=== PATIENT | male | born 1990 | race Two or more races ===

== ENCOUNTER 2020-07-07 00:59 | Emergency (ER) | payer MEDICAID, OTHER ==
[~2020-07-07] VITALS: Ht 175.3 cm; Wt 72.6 kg
--- NOTE | 2020-07-07 01:09 | NUR ---
BIBEMS C/O ALTERED, FOUND PT WITH METH PIPE NEXT TO HIM PER EMS REPORT. PT WAS TRANSFERRED TO BED 13 AND WAS PLACED ON A MONITOR, VSS. PT IS REFUSING TO TALK AND GIVING ANY MEANINGFUL INFORMATION. NO S/S OR C.O PAIN OR DISCOMFORT NOTED . WILL CONT TO MONITOR,
[2020-07-07] MEDS ORDERED: OLANZAPINE 10 MG VIAL IM ONE ×5 (02:51→15:30)
--- NOTE | 2020-07-07 03:24 | NUR ---
Tiarra buchanan in [facility] - 07/07/20 at 0632 by MAXI PT STATED" I DON'T WANNA BE HERE AND I WANNA LEAVE" DENIED ANY PAIN OR DISCOMFORT, DENIED SI OR HI.
--- NOTE | 2020-07-07 06:30 | NUR ---
PT REMAINED IN BED , DOSING INTERMITTENTLY, BREATHING EVENLY. NO SOB. NO S./S OF PAIN OR DISCOMFORT NOTED. VSS. REFUSED TO TALK OR TO GIVE ANY INFORMATION INCLUDING HIS NAME. WILL CONT TO MONITOR ,
--- NOTE | 2020-07-07 07:41 | NUR ---
patient in bed awake, hooked to monitor, VSS. will continue to monitor accordingly. sitter at bedside for safety
--- NOTE | 2020-07-07 08:35 | NUR ---
PT ASLEEP, EASILY AWAKEN BY VERBAL STIMULI & WILL GO BACK TO SLEEP. RR EVEN & UNLABORED. NAD NOTED AT THIS TIME. WILL CONT TO MONITOR.
--- NOTE | 2020-07-07 09:52 | NUR ---
patient not able to provide urine sample at this time
--- NOTE | 2020-07-07 10:30 | NUR ---
SS Note: SW met with pt. at bedside.The pt. is a 30 year old Black male in ED for altered mental status. The pt. was medicated with Zyprexa. The pt. appears unkempt and makes piercing eye contact. The pt. is not cooperative with the interview. TALI informed pt. SW to assist pt. with safe discharge plan. TALI w asked for pt.'s name. Patient mumbling, "I gave it to the nurses". However, he has not. Patient stated " I need to brush my teeth". TALI notified nurse. TALI will follow up at a later time if needed.
[2020-07-07 10:43] LABS: BASOPHILS % (AUTO) 0.7 % (0.0-2.0); EOSINOPHILS % (AUTO) 2.2 % (0.0-6.0); HEMATOCRIT 43 % (39-51); LYMPHOCYTES # (AUTO) 0.7 /CMM (0.8-4.8); LYMPHOCYTES % (AUTO) 13.2 % (20.0-44.0); MEAN CORPUSCULAR HGB CONC 33 g/dl (31.0-36.0); MEAN CORPUSCULAR VOLUME 81 fL (80-96); MONOCYTES # (AUTO) 0.8 /CMM (0.1-1.30); MONOCYTES % (AUTO) 15.2 % (2.0-12.0); NEUTROPHILS # (AUTO) 3.8 /CMM (1.8-8.9); NEUTROPHILS % (AUTO) 68.7 % (43.0-81.0); PLATELET COUNT (AUTO) 179 /CMM (150-450); RED BLOOD CELL COUNT(AUTO) 5.27 MIL/uL (4.5-6.0); WHITE BLOOD COUNT (AUTO) 5.6 K/uL (4.3-11.0)
[2020-07-07 10:44] LABS: ALANINE AMINOTRANSFERASE 23 U/L (12-78); ALBUMIN 3.8 g/dL (3.4-5.0); ALCOHOL, BLOOD < 3 mg/dL (0-0); ALKALINE PHOSPHATASE 87 U/L (46-116); ASPARTATE AMINOTRANSFERASE 26 U/L (15-37); BILIRUBIN,DIRECT 0.1 mg/dL (0.0-0.2); BILIRUBIN,TOTAL 0.4 mg/dL (0.2-1.0); CALCIUM, SERUM 9.1 mg/dL (8.5-10.1); CARBON DIOXIDE 26 mmol/L (21-32); CHLORIDE 105 mmol/L (98-107); CREATININE 0.7 mg/dL (0.6-1.3); GLUCOSE 77 mg/dL (74-106); POTASSIUM 3.4 mmol/L (3.5-5.1); SODIUM SERUM 141 mmol/L (136-145); TOTAL PROTEIN, SERUM 7.5 g/dL (6.4-8.2); UREA NITROGEN, BLOOD 11 mg/dL (7-18)
[2020-07-07 10:54] LABS: ACETAMINOPHEN < 10 ug/ml (10-30)
--- NOTE | 2020-07-07 11:52 | NUR ---
patient in bed asleep, hooked to monitor, VSS. will continue to monitor accordingly. sitter at bedside for safety
--- NOTE | 2020-07-07 12:02 | NUR ---
patient not able to provide urine sample at this time.
[2020-07-07 12:54] LABS: EOSINOPHILS % (MANUAL) 3 % (0-4); LYMPHOCYTES % (MANUAL) 9 % (16-48); MONOCYTES % (MANUAL) 15 % (0-11.0); NEUTROPHILS % (MANUAL) 73 (42-76)
--- NOTE | 2020-07-07 14:42 | NUR ---
urine sample collected via straight catheter, urine sample sent to lab
[2020-07-07 14:57] LABS: BILIRUBIN,URINE NEGATIVE (NEGATIVE); COLOR,URINE YELLOW (YELLOW); LEUKOCYTE ESTERASE ,URINE NEGATIVE (NEGATIVE); NITRITE, URINE NEGATIVE (NEGATIVE); PH,URINE 7.5 (5.0-8.0); PROTEIN,URINE NEGATIVE (NEGATIVE); UGLUCOSE NEGATIVE (NEGATIVE); UROBILINOGEN,URINE 0.2 EU/dL (0.2)
[2020-07-07 15:37] LABS: BACTERIA,URINE 1+ /HPF (None Seen); RBC,URINE 0-2 /HPF (0-2); SQUAMOUS EPITHELIAL CELL,UR Few /HPF (None Seen); WBC,URINE 0-2 /HPF (0-3)
[2020-07-07 15:39] LABS: URINE AMORPHOUS PHOSPHATES Few /HPF (None Seen)
--- NOTE | 2020-07-07 16:46 | NUR ---
patient in bed awake, hooked to monitor, VSS. will continue to monitor accordingly. sitter at bedside for safety
--- NOTE | 2020-07-07 17:16 | NUR ---
patient in bed asleep, hooked to monitor, VSS will cont to monitor accordingly
--- NOTE | 2020-07-07 21:18 | NUR ---
pt in bed , awake and alert. responsive to questions. PO intake tolerated well, VSS. will cont to monitor ,
--- NOTE | 2020-07-07 23:22 | NUR ---
pt ambulatory to the bathroom. awake and alert. reported feeling well and willing to leave the hospital. snacks given . tolerated well. will cont to monitor
--- NOTE | 2020-07-08 00:28 | NUR ---
pt stable for d/c. denied any pain or discomfort. ambulatory with steady gaits. Patient given written and verbal discharge instructions. Patient verbalizes understanding of instructions. Patient is ambulatory with steady gait. Refuses offer of custodial placement. Patient given proper warm clothing, and to go snacks. Patient was discharged in stable condition.
[2020-07-08 00:34] VITALS: BP 119/72
== END 2020-07-08 00:35 | disposition home or self-care (01) ==
LOC: EDBD 01:02 → ER 01:02
DX: F15.10 Other stimulant abuse, uncomplicated (principal)
CPT/HCPCS: 36415; 36600; 80048; 80076; 80299; 80307; 80320; 81001; 82803; 85007; 85025; 96372 ×2; 99285; J3490 ×2; G0480